=== PATIENT | male | born 1940 | race Caucasian/White ===

== ENCOUNTER 2017-07-26 08:05 | Outpatient (CLI) | payer MEDICARE ==
--- NOTE | 2017-07-26 10:28 | MRI ---
MRI LUMBAR SPINE WITHOUT CONTRAST: Date: 07/26/17 HISTORY: M54.16, lumbar radiculopathy. FINDINGS: Aortic contour is nonaneurysmal. No adenopathy. There is a T2 and T1 hyperintense mass within L2 vertebra with retained internal trabeculae and some loss signal on the fat sat sequence suggesting a hemangioma. No acute fracture. No acute malalignment. Paraspinal musculature is normal. Levels are as follows: T12-L1: Normal disc. No neural foraminal or spinal canal narrowing. L1-2: Mild degenerative disc space height loss. Circumferential disc bulge. Spinal canal is narrowed to sunita roximately 9.0 mm. There is moderate bilateral neural foraminal narrowing. L2-3: There is mild degenerative disc space height loss. There is retrolisthesis approximately 2.0 mm. Mode rate facet arthropathy. Moderate bilateral neural foraminal narrowing. The spinal canal measures appr oximately 9.0 mm. L3-4: Moderate degenerative disc space height loss. Circumferential disc bulge. Moderate facet arthropathy. There is moderate bilateral neural foraminal narrowing. There is ligamentum flavum hypertrophy. Spin al canal measures 6.0 mm. L4-5: Moderate facet arthrosis. Circumferential disc osteophyte complex. Moderate to severe left and modera te right-sided neural foraminal narrowing. Ligamentum flavum hypertrophy. The spinal canal measures a pproximately 7.0 mm. L5-S1: Mild facet arthrosis. No significant neural foraminal or spinal canal narrowing. IMPRESSION: 1. Mild to moderate spondylosis as described above, worse at L3-4 and at L4-5. 2. T2 and T1 hyperintense mass within the L2 vertebral body with some loss of signal on the fat satu rated sequence suggesting hemangioma. POS: OFF
== END 2017-07-26 08:06 | disposition home or self-care (01) ==
LOC: SCSMRI 08:05
PROVIDERS: ATTEND Physician Assistant Surgical
DX: M47.26 Other spondylosis with radiculopathy, lumbar region (principal); M89.9 Disorder of bone, unspecified
CPT/HCPCS: 72148